=== PATIENT | female | born 1940 | race Caucasian/White ===

== ENCOUNTER → 2017-01-24 | Outpatient (REF) ==
[~2017-01-24] MED LIST: ALORA0.05 MG/24 TD; ATIVAN 0.50.5 MG/TAB PO; ESTRACE0.5 MG PO; LOPRESSOR 225 MG/TAB PO; NORCO 325 MG-51 TAB PO; NORVASC 5MG5 MG/TAB PO; OSCAL 500 TAB500 MG PO; PROVERA 2.5MG2.5 MG PO; THERAGRAN1 TA1 PO; TOPROL XL 25MG25 MG PO; TYLENOL 325MG325 MG PO; VITAMIN C500 MG PO; XANAX .25M0.25 MG/TA PO; XANAX 0.5MG0.5 MG PO; XARELTO10 MG PO; ZANTAC 300300 MG PO; ZOLOFT 50MG50 MG PO
== END ==
LOC: ZLAB.WCH 11:35
DX: Z01.89 Encounter for other specified special examinations (principal)

== ENCOUNTER → 2017-02-02 | Outpatient (REF) | LOC: COL.CARD 13:30 | DX: R00.2 Palpitations (principal) ==

== ENCOUNTER → 2017-02-02 | Outpatient (REF) | LOC: ZLAB.WCHCL 13:24 | DX: Z01.89 Encounter for other specified special examinations (principal) ==

== ENCOUNTER → 2017-07-14 | Outpatient (REF) | LOC: ZLAB.WCH 14:50 | DX: Z01.89 Encounter for other specified special examinations (principal) ==

== ENCOUNTER → 2018-08-24 | Outpatient (REF) | LOC: ZLAB.WCH 16:28 | DX: Z01.89 Encounter for other specified special examinations (principal) ==

== ENCOUNTER → 2022-01-17 | Outpatient (REF) | LOC: COL.CARD 09:45 | DX: Z01.810 Encounter for preprocedural cardiovascular examination (principal) ==